=== PATIENT | male | born 1980 | race Caucasian/White ===

== ENCOUNTER 2017-09-12 10:40 | Emergency (ER) | payer OTHER ==
[~2017-09-12] VITALS: Ht 170.1 cm; Wt 83.9 kg
[~2017-09-12 10:40] MED LIST: BENTYL20 MG PO; DAYPRO600 M1 PO; DOXYCYCLINE MO100 MG PO; NKHM; NORCO 325 MG-51 TAB PO; PEN-VEE K500 MG PO; PRILOSEC40 MG PO; ROBAXIN750 MG PO; TRAMADOL HCL50 MG PO; ULTRAM50 MG PO; VICODIN1 TAB PO; Vicodin 5/500 505 MG
== END 2017-09-12 13:31 | disposition home or self-care (01) ==
LOC: ED 10:40
DX: S40.861A Insect bite (nonvenomous) of right upper arm, initial encounter (principal); Z90.49 Acquired absence of other specified parts of digestive tract; Z88.8 Allergy status to other drugs, medicaments and biological substances; W57.XXXA Bitten or stung by nonvenomous insect and other nonvenomous arthropods, initial encounter; Y93.89 Activity, other specified; Y92.89 Other specified places as the place of occurrence of the external cause; Y99.8 Other external cause status

== ENCOUNTER → 2018-03-12 | Outpatient (CLI) | payer OTHER | END | disposition home or self-care (01) | LOC: RAD 17:53 | DX: M47.896 Other spondylosis, lumbar region (principal); M99.03 Segmental and somatic dysfunction of lumbar region ==

== ENCOUNTER 2019-09-29 21:14 | Emergency (ER) | payer OTHER ==
[~2019-09-29] VITALS: Ht 172.7 cm; Wt 84.8 kg
[2019-09-29] MEDS ORDERED: PREDNISONE20 M1 PO (21:28)
[2019-09-29] MEDS ORDERED: BENADRYL25 M2 PO (21:28)
== END 2019-09-29 21:39 | disposition home or self-care (01) ==
LOC: ED 21:14
DX: L50.9 Urticaria, unspecified (principal); Z88.6 Allergy status to analgesic agent

== ENCOUNTER 2025-05-16 09:16 | Emergency (ER) | payer SELFPAY ==
[~2025-05-16] VITALS: Ht 167.6 cm; Wt 78.0 kg
[~2025-05-16 09:16] MED LIST changes: +BENADRYL25 M2 PO; +PREDNISONE20 M1 PO
[2025-05-16] MEDS ORDERED: ASPIRIN 325 MG TAB PO ONE (09:30)
[2025-05-16] MEDS ORDERED: SODIUM CHLORIDE 0.9% 1,000 ML IV ONE (09:30)
[2025-05-16 09:52] LABS: BASO # 0.0 10*3/uL (0.0-0.1); BASO % 0.5 % (0.0-1.0); EOS # 0.2 10*3/uL (0.0-0.4); EOS % 3.9 % (1.0-4.0); MEAN CELL VOLUME 88.4 fl (80.0-94.0); MEAN CORPUSCULAR HGB 29.9 pg (27.0-31.0); MEAN PLATELET VOLUME 9.2 fl (9.6-12.3); MONO # 0.4 10*3/uL (0.1-1.0); MONO % 7.1 % (3.0-9.0); NEUT # 3.6 10*3/uL (2.3-7.9); NEUT % 63.0 % (47.0-73.0); NUCLEATED RED BLOOD CELL 0.0 % (0.0-0.0); NUCLEATED RED BLOOD CELL 0.0 10*3/uL (0.0-0.0); PLATELET COUNT AUTOMATED 237 10*3/uL (130-400); RED CELL DISTRI WIDTH 12.6 % (0-14.5)
[2025-05-16 10:00] LABS: ACT PARTIAL THROMBO TIME 25.1 SECONDS (20.0-32.1)
[2025-05-16 10:14] LABS: BUN 7 mg/dl (9-23)
== END 2025-05-16 12:45 | disposition left against medical advice (07) ==
LOC: ED 09:16
PROVIDERS: Internal Medicine
DX: R07.89 Other chest pain (principal); Z79.899 Other long term (current) drug therapy; Z88.8 Allergy status to other drugs, medicaments and biological substances; Z90.49 Acquired absence of other specified parts of digestive tract; Z90.89 Acquired absence of other organs; Z98.890 Other specified postprocedural states